=== PATIENT | female | born 1995 | race Two or more races ===

== ENCOUNTER 2021-06-06 06:11 | Inpatient (IN) ==
[2021-06-06] MEDS ORDERED: BETADINE SOLN ONE (06:34)
[2021-06-06] MEDS ORDERED: PITOCIN ONE ×2 (06:34→22:21)
[2021-06-06] MEDS ORDERED: D5 1/2 NS 1,000 ML 1,000 ML IV ONE (06:34)
[2021-06-06] MEDS ORDERED: D5 1/2 NS 1,000 mL + PITOCIN 20 UNITS/L IV 20 UNITS/1,000 ML BAG IV ONE (06:35)
[2021-06-06] MEDS ORDERED: D5 LR + PITOCIN 10 UNITS/L 10 UNITS/1,000 ML BAG IV ONE (06:35)
[2021-06-06] MEDS ORDERED: PHENERGAN INJ 25 MG IM PRN ×2 (06:43→22:57)
[2021-06-06] MEDS ORDERED: D5 LR + PITOCIN 10 UNITS/L 10 UNITS/1,000 ML BAG IV PRN (06:43)
[2021-06-06] MEDS ORDERED: PITOCIN IVP ONE (06:43)
[2021-06-06] MEDS ORDERED: REGLAN INJ 10 MG VIAL IVP PRN ×2 (06:43→22:57)
[2021-06-06] MEDS ORDERED: STADOL INJ IVP PRN (07:00)
[2021-06-06] MEDS ORDERED: D5 1/2 NS 1,000 ML 1,000 ML IV SCH (07:00)
[2021-06-06 07:15] LABS: BASOPHILS # (AUTO) 0.1 X10^3/uL (0.0-0.1); BASOPHILS % (AUTO) 0.7 % (0.2-1.0); EOSINOPHILS # (AUTO) 0.1 x10^3/uL (0.0-0.2); EOSINOPHILS % (AUTO) 0.9 % (0.9-2.9); HEMATOCRIT 30.7 % (36.0-47.0); HEMOGLOBIN 9.8 g/dL (12.0-16.0); LYMPHOCYTES # (AUTO) 2.2 X10^3/uL (1.3-2.9); LYMPHOCYTES % (AUTO) 19.7 % (21.0-51.0); MEAN CORPUSCULAR HEMOGLOBIN 22.4 pg (27.0-34.0); MEAN PLATELET VOLUME 7.6 fL (7.4-11.0); MONOCYTES # (AUTO) 0.9 x10^3/uL (0.3-0.8); NEUTROPHILS # (AUTO) 7.9 x10^3/uL (2.2-4.8); NEUTROPHILS % (AUTO) 70.7 % (42.0-75.0); RED BLOOD COUNT 4.39 X10^6/uL (3.5-5.4); RED CELL DISTRIBUTION WIDTH 17.8 % (11.6-16.5); WHITE BLOOD COUNT 11.1 X10^3/uL (3.6-10.0)
[2021-06-06 07:18] LABS: BLOOD UREA NITROGEN 5 mg/dL (7-18); CALCIUM 8.6 mg/dL (8.5-10.1); CHLORIDE 103 mmol/L (98-107); CREATININE 0.68 mg/dL (0.55-1.02); SODIUM 135 mmol/L (136-145); eGFR NON BLACK RACES > 60 (>60)
[2021-06-06 07:38] LABS: PLATELET MORPHOLOGY COMMENT NORMAL (NORMAL)
[2021-06-06 07:39] LABS: ANISOCYTOSIS SLIGHT; HYPOCHROMASIA SLIGHT; MICROCYTOSIS SLIGHT
[2021-06-06 08:35] LABS: BILIRUBIN,URINE NEGATIVE (NEGATIVE); BLOOD/HEMOGLOBIN,URINE NEGATIVE (NEGATIVE); GLUCOSE, URINE NEGATIVE (NEGATIVE); KETONES,URINE NEGATIVE (NEGATIVE); LEUKOCYTE ESTERASE ,URINE NEGATIVE (NEGATIVE); NITRITES,URINE NEGATIVE (NEGATIVE); PROTEIN,URINE 1+ (NEGATIVE); UROBILINOGEN,URINE NORMAL (NORMAL)
[2021-06-06 09:31] LABS: APPEARANCE,URINE SLIGHTLY HAZY (CLEAR); COLOR,URINE YELLOW (YELLOW)
[2021-06-06 09:32] LABS: BACTERIA,URINE TRACE /HPF (NEGATIVE); RBC,URINE 0-2 /HPF (0-3); SQUAMOUS EPITHELIAL CELL,UR MODERATE /HPF (NEGATIVE)
[2021-06-06] MEDS ORDERED: LR 1,000 ML IV 1,000 ML IV ONE ×2 (12:31→21:40)
[2021-06-06] MEDS ORDERED: ZOFRAN INJ 4 MG VIAL ONE (12:47)
[2021-06-06] MEDS ORDERED: FENTANYL VIAL INJ 100 mcg ONE ×2 (12:50→12:51)
[2021-06-06] MEDS ORDERED: NAROPIN 0.2% 400 MG/200 ML BAG 200 ML ONE (12:51)
[2021-06-06] MEDS ORDERED: NS 100 ML IV 100 ML ONE (21:40)
[2021-06-06] MEDS ORDERED: ANCEF VIAL 1 GRAM ONE (21:40)
[2021-06-06] MEDS ORDERED: LIDOCAINE 2%-EPI 1:200,000 ONE (21:54)
[2021-06-06] MEDS ORDERED: VERSED ONE (22:01)
[2021-06-06] MEDS ORDERED: DILAUDID INJ ONE (22:19)
[2021-06-06] MEDS ORDERED: EPHEDRINE SULFATE INJ ONE (22:29)
[2021-06-06] MEDS ORDERED: NS 100 ML IV 100 ML with VENOFER 400 MG IV NR ×2 (22:52)
--- NOTE | 2021-06-06 22:56 | DR.COXINPR ---
INITIAL ASSESSMENT Basic Data Infant Gender: Male Infant Delivery Location: Operating Room Infant Delivery Method: Primary Mother's Information and Lab Work : 1 Hx Para: 0 Hx # Term Pregnancies: 0 Hx # Pregnancies: 0 Number of Living Children: 0 Hx Total # of Abortions (Sponateous & Elective): 0 Blood Type: B+ Rubella Status: Immune RPR: Negative Hepititis B Status: Negative HIV Status: Negative Group B Strep Status: Negative GC/Chlamydia: Negative Birthweight/Gestational Age Assessment Weight: 191 lb Infant Weight: 7lb 6oz Height: 5 ft 4 in Vital Signs Temperature: 98.0 F Pulse Rate: 78 Respiratory Rate: 19 O2 Sat by Pulse Oximetry: 99 Review of Systems Tone/Appearance: Normal Skin: color,lesions: Normal Head/Neck: Normal Eyes: Normal ENT: Normal Thorax: Normal lungs: Normal Heart: Normal Abdomen: Normal Umbilicus: Normal Femerol Pulse: Normal Genitals: Normal Anus: Normal Trunk/Spine: Normal Extremities/Joints: Normal Neurologic/Reflexes: Normal Assessment/Plan (1) Liveborn infant by delivery: Status: Acute
[2021-06-06] MEDS ORDERED: ZOFRAN INJ 4 MG VIAL IVP PRN ×2 (22:57→23:16)
[2021-06-06] MEDS ORDERED: DILAUDID INJ IVP PRN (22:57)
[2021-06-06] MEDS ORDERED: BENADRYL INJ 50 MG VIAL IVP PRN ×2 (22:57→23:16)
[2021-06-06] MEDS ORDERED: BARHEMSYS INJ IVP PRN (22:57)
[2021-06-06] MEDS ORDERED: NARCAN INJ IVP PRN (23:16)
[2021-06-06] MEDS ORDERED: TORADOL 30 MG VIAL IVP PRN (23:16)
[2021-06-06] MEDS ORDERED: PERCOCET TAB 5/325 MG PO PRN (23:16)
[2021-06-06] MEDS ORDERED: MYLICON TAB 80 MG CHEW PO PRN (23:21)
[2021-06-06] MEDS ORDERED: ADACEL or BOOSTRIX TDaP VACCINE IM ONE (23:21)
[2021-06-06] MEDS ORDERED: D5 1/2 NS 1,000 ML 1,000 ML with PITOCIN 20 UNITS IV SCH ×2 (23:45)
[2021-06-07] MEDS: LR 1,000 ML IV 1,000 ML IV SCH ×4 (00:39→23:52)
[2021-06-07 05:38] LABS: HEMATOCRIT 23.9 % (36.0-47.0)
[2021-06-07 06:18] LABS: HEMOGLOBIN 7.7 g/dL (12.0-16.0)
[2021-06-07] MEDS ORDERED: NS 100 ML IV 100 ML with VENOFER 400 MG IV NR ×2 (08:00)
[2021-06-07] MEDS: MOTRIN TAB 800 MG PO PRN ×2 (08:42→18:28)
[2021-06-07] MEDS: PRENATAL PLUS PO SCH (08:42)
[2021-06-07] MEDS ORDERED: PERCOCET TAB 5/325 MG PO PRN (08:58)
[2021-06-07] MEDS ORDERED: ADACEL or BOOSTRIX TDaP VACCINE IM ONE (20:24)
[2021-06-08] MEDS: MOTRIN TAB 800 MG PO PRN (02:34)
[2021-06-08] MEDS ORDERED: NS 100 ML IV 100 ML with VENOFER 400 MG IV NR ×2 (07:00)
[2021-06-08] MEDS: PRENATAL PLUS PO SCH (09:24)
[2021-06-08 10:40] VITALS: BP 113/70
== END 2021-06-08 14:40 | disposition home or self-care (01) | DRG 788 ==
LOC: LD 06:11 → MED/SURG 23:17
PROVIDERS: ADMIT Obstetrics & Gynecology Obstetrics; ATTEND Obstetrics & Gynecology Obstetrics